=== PATIENT | female | born 1965 | race Caucasian/White ===

== ENCOUNTER → 2024-09-24 11:43 | Outpatient (BNVA) | payer BC, SELFPAY | PROVIDERS: Referring Provider Pediatrics; Visit Provider Specialist | DX: R41.3 Other amnesia (principal) | CPT/HCPCS: 36415; 80053; 82542; 82607; 82746; 83520; 84439; 84443; 85025 ==

== ENCOUNTER 2024-09-30 09:43 | Outpatient (CLI) | payer BC, SELFPAY ==
--- NOTE | 2024-09-30 10:15 | MR_ITS ---
WS: [id number] MRI BRAIN WITHOUT CONTRAST HISTORY: R41.3 - Other amnesia COMPARISON: None available. TECHNIQUE: Diffusion imaging, multiplanar T1, T2 and FLAIR imaging obtained. No evidence for acute infarct or hemorrhage. Garcia-white matter differentiation is normal. Very mild h ippocampal atrophy which is symmetric. There are a few scattered T2 and FLAIR signal hyperintensities which are bilateral. No remote or acute infarcts are volume loss. Ventricles and extra-axial spaces are normal. No inferior displacement of cerebellar tonsils. Very slight ectopia of the cerebellar tonsils no Robel ri malformation. The sella turcica and pituitary gland are unremarkable. Dural venous sinuses and [place] demonstrate no abnormality on this unenhanced studies. Paranasal sinuses: Clear. Mastoid air cells: Normal. Calvarium and scalp: Intact. MR/MR head wo con* [id number] IMPRESSION: 1. No acute infarct or hemorrhage. 2. Very mild bilateral hippocampal atrophy. 3. There are a few scattered T2 and FLAIR signal hyperintensities. Most likely related to small vessel ischemic disease. These also can be seen with hyperten robert, diabetes and migraines.
== END 2024-09-30 09:44 | disposition home or self-care (01) ==
LOC: RAD 09:45
PROVIDERS: Visit Provider Specialist
DX: R90.89 Other abnormal findings on diagnostic imaging of central nervous system (principal); R41.3 Other amnesia
CPT/HCPCS: 70551